=== PATIENT | male | born 1960 | race African-American/Black ===

== ENCOUNTER 2018-03-26 10:51 | Emergency (ER) | payer BC ==
[2018-03-26 11:25] LABS: #Basophils 0.1 thou/uL (0.0-0.2); #Eosinphils 0.2 thou/uL (0.0-0.7); #Lymphocytes 2.1 thou/uL (1.20-3.40); #Monocytes 0.4 thou/uL (0.11-0.59); %Basophils 1.1 % (0.0-1.0); %Lymphocytes 27.1 % (21.0-51.0); %Monocytes 4.7 % (0.0-10.0); %Neutrophils 65.1 % (42.0-75.0); Hemoglobin 13.3 g/dL (14.0-18.0); Mean Corpuscular HGB CONC 32.7 g/dL (32.0-36.0); Mean Corpuscular Hemoglobin 29.8 pg (27.0-31.0); Mean Platelet Volume 7.4 fL (7.4-10.4); Platelet Count 239 thou/uL (130-400); RBC Distribution Width 12.9 % (11.5-14.5); Red Blood Cell (RBC) Count 4.47 mill/uL (4.70-6.10); White Blood Cell (WBC) Count 7.6 thou/uL (4.8-10.8)
[2018-03-26 11:31] LABS: INR-International Normal Ratio 1.1; PTT 26.7 SEC (22.9-36.1)
[2018-03-26 11:39] LABS: Anion Gap 14 mmol/L (10-20); BUN (Urea Nitrogen) 14 mg/dL (8.4-25.7); Calc. Creatinine Clearance 0 mL/min (70-130); Calcium 9.6 mg/dL (7.8-10.44); Carbon Dioxide 25 mmol/L (22-29); Chloride 106 mmol/L (98-107); Estimated GFR-MDRD 63; Glucose 166 mg/dL (70-105); Magnesium 2.2 mg/dL (1.6-2.6); Potassium 3.4 mmol/L (3.5-5.1); Sodium 142 mmol/L (136-145)
--- NOTE | 2018-03-26 11:41 | RAD ---
PORTABLE CHEST: Date: 03/26/18 HISTORY: Chest pain. FINDINGS: Heart size is enlarged. No signs of overt failure or focal infiltrates. IMPRESSION: Mild cardiomegaly. POS: [id number]
[2018-03-26 11:43] LABS: CKMB 1.8 ng/mL (0-6.6); Troponin I Less than 0.010 ng/mL (< 0.028)
[2018-03-26] MEDS ORDERED: Potassium Chloride 20 MEQ TAB ONE (12:05)
[2018-03-26] MEDS ORDERED: Furosemide 20 MG/2 ML VIAL ONE (12:05)
== END 2018-03-26 12:40 | disposition short-term general hospital (02) ==
LOC: MADERS 10:51
DX: I49.01 Ventricular fibrillation (principal); N17.9 Acute kidney failure, unspecified; E87.70 Fluid overload, unspecified; E78.5 Hyperlipidemia, unspecified; I10 Essential (primary) hypertension; Z79.899 Other long term (current) drug therapy
CPT/HCPCS: 36415; 71045; 80048; 82553; 83735; 83880; 84443; 84484; 85025; 85610; 85730; 93005; 96374; 96375; J1940

== ENCOUNTER 2021-11-03 00:10 | Emergency (ER) | payer BC ==
[2021-11-03] MEDS ORDERED: Diltiazem 125 MG/25 ML ONE ×2 (00:17→00:35)
[2021-11-03] MEDS ORDERED: Metoprolol Tartrate 5 MG/5 ML VIAL ONE (00:26)
[2021-11-03] MEDS ORDERED: Sodium Chloride 0.9% 100 ML ONE (00:36)
[2021-11-03 00:45] LABS: #Basophils 0.1 thou/uL (0.0-0.2); #Eosinphils 0.2 thou/uL (0.0-0.7); #Lymphocytes 2.5 thou/uL (1.20-3.40); #Monocytes 0.5 thou/uL (0.11-0.59); %Basophils 1.2 % (0.0-1.0); %Eosinophils 2.8 % (0.0-10.0); %Lymphocytes 29.6 % (21.0-51.0); %Neutrophils 60.4 % (42.0-75.0); Hemoglobin 13.1 g/dL (14.0-18.0); Mean Corpuscular HGB CONC 31.7 g/dL (32.0-36.0); Mean Corpuscular Hemoglobin 30.7 pg (27.0-31.0); Platelet Count 233 thou/uL (130-400); RBC Distribution Width 13.6 % (11.5-14.5); Red Blood Cell (RBC) Count 4.25 mill/uL (4.70-6.10); White Blood Cell (WBC) Count 8.3 thou/uL (4.8-10.8)
[2021-11-03] MEDS ORDERED: Enoxaparin Sodium 40 MG/0.4 ML SYRINGE ONE (01:02)
[2021-11-03] MEDS ORDERED: Aspirin 325 MG TAB ONE (01:02)
[2021-11-03] MEDS ORDERED: Enoxaparin Sodium 100 MG/ML SYRINGE ONE (01:02)
[2021-11-03] MEDS ORDERED: Metoprolol Tartrate 50 MG TAB ONE (01:02)
[2021-11-03 01:24] LABS: ALT (SGPT) 15 U/L (8-55); AST (SGOT) 15 U/L (5-34); Albumin 4.1 g/dL (3.4-4.8); Alkaline Phosphatase 82 U/L (40-110); Anion Gap 15 mmol/L (10-20); BUN (Urea Nitrogen) 14 mg/dL (8.4-25.7); Bilirubin, Total 0.4 mg/dL (0.2-1.2); CK (CPK) 170 U/L (30-200); Calc. Creatinine Clearance 0 mL/min (70-130); Calcium 9.3 mg/dL (7.8-10.44); Chloride 105 mmol/L (98-107); Globulin 3.8 g/dL (2.4-3.5); Glucose 123 mg/dL (80-115); Potassium 3.8 mmol/L (3.5-5.1); Protein, Total 7.9 g/dL (5.8-8.1); Sodium 142 mmol/L (136-145)
[2021-11-03 01:35] LABS: Carbon Dioxide 26 mmol/L (23-31)
== END 2021-11-03 03:54 | disposition left against medical advice (07) ==
LOC: MADERS 00:10
DX: I48.91 Unspecified atrial fibrillation (principal); I49.01 Ventricular fibrillation; E78.5 Hyperlipidemia, unspecified; E78.00 Pure hypercholesterolemia, unspecified; I10 Essential (primary) hypertension; Z79.82 Long term (current) use of aspirin; Z79.899 Other long term (current) drug therapy
CPT/HCPCS: 71045; 80053; 82550; 83880; 84443; 84484; 85025; 93005; 94760; 96365; 96366; 96372; 96375; 96376; J1650; J3490